=== PATIENT | female | born 1960 | race African-American/Black ===

== ENCOUNTER 2017-07-18 08:55 | Inpatient (IN) | payer MEDICARE, MEDICAID ==
[2017-07-18] VITALS (7 sets, daily range): BP systolic 109–119; BP diastolic 78–85
[~2017-07-18] VITALS: Ht 167.6 cm; Wt 88.0 kg
[2017-07-18] MEDS ORDERED: METHYLPREDNISOLONE SOD SUCC 125 MG/2 ML VIAL IV STA (09:02)
[2017-07-18] MEDS ORDERED: MORPHINE SULFATE 4 MG/ML CPJ (NOT FOR IM USE) IV STA (09:02)
[2017-07-18] MEDS ORDERED: ALBUTEROL (0.083%) 2.5MG/3ML NEB HHN STA (09:02)
[2017-07-18] MEDS ORDERED: IPRATROPIUM BROMIDE (0.02%) 0.5MG/2.5ML NEB HHN STA (09:02)
[2017-07-18] MEDS ORDERED: TERBUTALINE SULFATE 1MG/ML VIAL SUBCUT ONE (09:15)
[2017-07-18] MEDS ORDERED: MAGNESIUM 2 G PREMIX 50 ML IV ONE (09:15)
[2017-07-18 09:38] LABS: BASOPHILS % 0.6 % (0.0-2.0); HEMOGLOBIN. 11.1 g/dL (12.0-16.0); LYMPHOCYTES % 18.9 % (20.0-50.0); MEAN CORPUSCULAR HEMOGLOBIN 24.8 pg (28.0-32.0); MEAN CORPUSCULAR VOLUME 78.4 fL (81.0-99.0); MEAN PLATELET VOLUME 8.2 fl (7.4-10.4); MONOCYTES % 3.8 % (2.0-8.0); NEUTROPHILS % 75.7 % (40.0-76.0); PLATELET 297 x1000/uL (130-400); RED BLOOD CELL COUNT 4.46 mill/uL (4.2-5.4); RED CELL DISTRIBUTION WIDTH 15.5 % (11.6-14.6)
[2017-07-18 09:44] LABS: PROTHROMBIN TIME 10.4 sec (9.4-11.6)
[2017-07-18 09:45] LABS: CHLORIDE 106 mEq/L (98-107)
[2017-07-18 09:52] LABS: CARBON DIOXIDE 26 mEq/L (21-32)
[2017-07-18 09:53] LABS: TROPONIN I 0.05 ng/mL (0.00-0.04)
[2017-07-18] MEDS ORDERED: MORPHINE SULFATE 4 MG/ML CPJ (NOT FOR IM USE) IV ONE (10:30)
[2017-07-18] MEDS ORDERED: IPRATROPIUM/ALBUTEROL 0.5-3(2.5)MG/3ML NEB HHN PRN (12:30)
[2017-07-18] MEDS ORDERED: LORAZEPAM 2MG/ML CPJ IV NR ×2 (12:30→21:45)
[2017-07-18] MEDS: BUDESONIDE 0.5MG/2ML NEB HHN SCH ×2 (13:01→21:04)
[2017-07-18] MEDS: IPRATROPIUM/ALBUTEROL 0.5-3(2.5)MG/3ML NEB HHN SCH ×3 (13:01→21:05)
[2017-07-18] MEDS ORDERED: GUAIFENESIN 200MG/10ML SUGAR FREE UDC PO PRN (14:00)
[2017-07-18] MEDS ORDERED: METHYLPREDNISOLONE SOD SUCC 40 MG/ML VIAL IV SCH ×2 (14:00→18:00)
[2017-07-18] MEDS ORDERED: ONDANSETRON HCL 4MG/2ML VIAL IV PRN (14:00)
[2017-07-18] MEDS ORDERED: CEFTRIAXONE 1 G PREMIX 50 ML IV SCH (14:00)
[2017-07-18] MEDS ORDERED: METHYLPREDNISOLONE SOD SUCC 125 MG/2 ML VIAL IV SCH (14:00)
[2017-07-18] MEDS ORDERED: IPRATROPIUM/ALBUTEROL 0.5-3(2.5)MG/3ML NEB INH PRN (14:00)
[2017-07-18] MEDS ORDERED: DOCUSATE SODIUM 100MG CAPSULE PO PRN (14:00)
[2017-07-18] MEDS ORDERED: BUDESONIDE 0.5MG/2ML NEB HHN SCH (14:00)
[2017-07-18] MEDS ORDERED: CLONIDINE 0.1MG TABLET PO PRN (14:00)
[2017-07-18] MEDS ORDERED: ENOXAPARIN 40MG/0.4ML SYR SUBCUT SCH (14:00)
[2017-07-18 14:37] LABS: BG BASE EXCESS -1.6 mmol/L (-2.0-2.0); BG BILEVEL POS AIRWAY PRESSURE 15/5; BG CARBOXYHEMOGLOBIN 0.3 % (0.5-1.5); BG FRACTION INSPIRED OXYGEN 50; BG HCO3 ACT 26.2 mmol/L (22.0-26.0); BG METHEMOGLOBIN 0.3 % (0.0-1.5); BG OXYHEMOGLOBIN 98.4 % (94.0-97.0); BG PCO2 58.7 mmHg (35.0-45.0); BG PH 7.267 (7.350-7.450); BG PO2 205.6 mmHg (75.0-100.0); BG SAMPLE SITE RIGHT RADIAL; BG VENT MODE MASK - BIPAP; BG VENT RATE 20 set
[2017-07-18 15:37] LABS: CARBON DIOXIDE 27 mEq/L (21-32); CHLORIDE 105 mEq/L (98-107)
[2017-07-18 15:43] LABS: CREATINE KINASE MB FRACTION 9.2 ng/mL (0.5-3.6); TROPONIN I 0.38 ng/mL (0.00-0.04)
[2017-07-18] MEDS: CEFTRIAXONE 1 G PREMIX 50 ML IV SCH (16:39)
[2017-07-18] MEDS: NICOTINE 21MG PATCH TD SCH ×2 (17:00→18:04)
[2017-07-18] MEDS: LORAZEPAM 0.5MG TABLET PO PRN (17:25)
[2017-07-18] MEDS: AMLODIPINE 2.5MG TABLET PO SCH (18:03)
[2017-07-18] MEDS: METHYLPREDNISOLONE SOD SUCC 125 MG/2 ML VIAL IV SCH ×2 (18:04→23:27)
[2017-07-18] MEDS: ENOXAPARIN 30MG/0.3ML SYR SUBCUT SCH (20:24)
[2017-07-19] VITALS (15 sets, daily range): BP systolic 84–127; BP diastolic 24–99
[2017-07-19 00:01] LABS: CREATINE KINASE MB FRACTION 14.2 ng/mL (0.5-3.6)
[2017-07-19 00:07] LABS: TROPONIN I 0.72 ng/mL (0.00-0.04)
[2017-07-19] MEDS: IPRATROPIUM/ALBUTEROL 0.5-3(2.5)MG/3ML NEB HHN SCH ×6 (00:18→21:23)
[2017-07-19] MEDS: ACETAMINOPHEN 325MG TABLET PO PRN ×2 (05:20→16:52)
[2017-07-19] MEDS: METHYLPREDNISOLONE SOD SUCC 125 MG/2 ML VIAL IV SCH ×4 (05:21→23:10)
[2017-07-19 06:20] LABS: HEMATOCRIT. 32.7 % (36.0-48.0); HEMOGLOBIN. 10.5 g/dL (12.0-16.0); MEAN CORPUSCULAR HEMOGLOBIN 24.6 pg (28.0-32.0); MEAN CORPUSCULAR VOLUME 76.5 fL (81.0-99.0); MEAN PLATELET VOLUME 8.7 fl (7.4-10.4); PLATELET 281 x1000/uL (130-400); RED BLOOD CELL COUNT 4.27 mill/uL (4.2-5.4); RED CELL DISTRIBUTION WIDTH 15.3 % (11.6-14.6)
[2017-07-19 07:20] LABS: CARBON DIOXIDE 26 mEq/L (21-32); CHLORIDE 103 mEq/L (98-107); HDL CHOLESTEROL 60 mg/dL (40-59); LDL CHOLESTEROL 53 mg/dL (5-100)
[2017-07-19 07:25] LABS: CLARITY URINE CLEAR (CLEAR); COLOR URINE YELLOW (YELLOW); GLUCOSE URINE NEGATIVE (NEGATIVE); KETONES URINE NEGATIVE (NEGATIVE); LEUKOCYTE ESTERASE URINE NEGATIVE (NEGATIVE); NITRITE URINE NEGATIVE (NEGATIVE); OCCULT BLOOD URINE NEGATIVE (NEGATIVE); PROTEIN URINE NEGATIVE (NEGATIVE); SPECIFIC GRAVITY URINE 1.018 (1.005-1.030); UROBILINOGEN URINE 0.2 E.U./dL (0.2-1.0)
[2017-07-19 08:04] LABS: TROPONIN I 0.57 ng/mL (0.00-0.04)
[2017-07-19 08:11] LABS: *AMPHETAMINES SCREEN URINE NEGATIVE (NEGATIVE); *BARBITURATES SCREEN URINE NEGATIVE (NEGATIVE); *BENZODIAZEPINES SCREEN URINE NEGATIVE (NEGATIVE); *COCAINE SCREEN URINE NEGATIVE (NEGATIVE); CANNABINOID URINE SCREEN NEGATIVE (NEGATIVE); METHADONE URINE SCREEN NEGATIVE (NEGATIVE); OPIATES URINE SCREEN PRESUMTIVE POSITIVE (NEGATIVE); PHENCYCLIDINE URINE SCREEN NEGATIVE (NEGATIVE)
[2017-07-19] MEDS: BUDESONIDE 0.5MG/2ML NEB HHN SCH ×2 (08:25→21:23)
[2017-07-19] MEDS: ENOXAPARIN 30MG/0.3ML SYR SUBCUT SCH ×2 (08:55→20:13)
[2017-07-19] MEDS: CEFTRIAXONE 1 G PREMIX 50 ML IV SCH (08:55)
[2017-07-19] MEDS: AMLODIPINE 2.5MG TABLET PO SCH ×2 (08:56→17:44)
[2017-07-19] MEDS: LORAZEPAM 0.5MG TABLET PO PRN ×2 (09:09→16:52)
[2017-07-19] MEDS: NICOTINE 21MG PATCH TD SCH (12:52)
[2017-07-19 13:31] LABS: PLATELET ESTIMATE NORMAL
[2017-07-19] MEDS ORDERED: TAP5 PO (14:58)
[2017-07-19] MEDS ORDERED: LORA0.5T2 PO (14:59)
[2017-07-19] MEDS ORDERED: HYDR12.54 PO (15:07)
[2017-07-19] MEDS ORDERED: THEO200T17 PO (15:07)
[2017-07-19] MEDS ORDERED: FLUTI (15:07)
[2017-07-19] MEDS ORDERED: ASPI-1159 PO (15:07)
[2017-07-19] MEDS ORDERED: UMEC62.5 IH (15:07)
[2017-07-19] MEDS ORDERED: LISI40TA4 PO (15:07)
[2017-07-19] MEDS: MAGNESIUM/ALUMINUM HYDROXIDE/SIMETHICONE 30ML UDC PO PRN (16:51)
[2017-07-19] MEDS ORDERED: LACTULOSE 20G/30ML UDC PO PRN (17:15)
[2017-07-20] VITALS (12 sets, daily range): BP systolic 99–131; BP diastolic 64–88
[2017-07-20] MEDS: IPRATROPIUM/ALBUTEROL 0.5-3(2.5)MG/3ML NEB HHN SCH ×6 (00:39→21:05)
[2017-07-20] MEDS ORDERED: DILTIAZEM HCL 5MG/ML 5ML VIAL IV NR (05:30)
[2017-07-20] MEDS ORDERED: DILTIAZEM HCL 125 MG in DEXT 5% WATER 100 ML IV PRN ×2 (05:45→10:05)
[2017-07-20] MEDS: METHYLPREDNISOLONE SOD SUCC 125 MG/2 ML VIAL IV SCH (05:53)
[2017-07-20] MEDS: BUDESONIDE 0.5MG/2ML NEB HHN SCH ×2 (07:43→21:00)
[2017-07-20] MEDS: ENOXAPARIN 30MG/0.3ML SYR SUBCUT SCH ×2 (09:00→21:27)
[2017-07-20] MEDS: AMLODIPINE 2.5MG TABLET PO SCH ×2 (09:00→17:49)
[2017-07-20] MEDS: LORAZEPAM 0.5MG TABLET PO PRN (09:00)
[2017-07-20] MEDS: NICOTINE 14MG PATCH TD SCH (09:00)
[2017-07-20 09:38] LABS: HEMATOCRIT. 33.6 % (36.0-48.0); HEMOGLOBIN. 10.9 g/dL (12.0-16.0); MEAN CORPUSCULAR HEMOGLOBIN 24.8 pg (28.0-32.0); MEAN CORPUSCULAR VOLUME 76.4 fL (81.0-99.0); MEAN PLATELET VOLUME 8.8 fl (7.4-10.4); PLATELET 291 x1000/uL (130-400); RED CELL DISTRIBUTION WIDTH 15.6 % (11.6-14.6)
[2017-07-20 10:00] LABS: CARBON DIOXIDE 30 mEq/L (21-32); CHLORIDE 105 mEq/L (98-107)
[2017-07-20] MEDS ORDERED: LORAZEPAM 0.5MG TABLET PO PRN (12:30)
[2017-07-20] MEDS: ALPRAZOLAM 0.25 MG TABLET PO SCH ×2 (14:02→21:25)
[2017-07-20] MEDS: DILTIAZEM HCL 30MG TABLET PO SCH ×2 (14:03→17:50)
[2017-07-20] MEDS: CEFTRIAXONE 1 G PREMIX 50 ML IV SCH (14:03)
[2017-07-20] MEDS: METHYLPREDNISOLONE SOD SUCC 40 MG/ML VIAL IV SCH ×2 (14:15→21:25)
[2017-07-20 19:50] LABS: PLATELET ESTIMATE NORMAL
[2017-07-21] VITALS (12 sets, daily range): BP systolic 93–140; BP diastolic 55–84
[2017-07-21] MEDS: IPRATROPIUM/ALBUTEROL 0.5-3(2.5)MG/3ML NEB HHN SCH ×3 (00:07→08:36)
[2017-07-21] MEDS: DILTIAZEM HCL 30MG TABLET PO SCH ×4 (06:00→18:00)
[2017-07-21] MEDS: ALPRAZOLAM 0.25 MG TABLET PO SCH ×3 (06:00→22:04)
[2017-07-21] MEDS: METHYLPREDNISOLONE SOD SUCC 40 MG/ML VIAL IV SCH ×3 (06:07→22:07)
[2017-07-21 07:29] LABS: HEMATOCRIT. 33.5 % (36.0-48.0); HEMOGLOBIN. 10.7 g/dL (12.0-16.0); MEAN CORPUSCULAR HEMOGLOBIN 24.6 pg (28.0-32.0); MEAN CORPUSCULAR VOLUME 76.9 fL (81.0-99.0); MEAN PLATELET VOLUME 8.6 fl (7.4-10.4); PLATELET 271 x1000/uL (130-400); RED BLOOD CELL COUNT 4.36 mill/uL (4.2-5.4); RED CELL DISTRIBUTION WIDTH 15.6 % (11.6-14.6)
[2017-07-21 07:54] LABS: CARBON DIOXIDE 31 mEq/L (21-32); CHLORIDE 103 mEq/L (98-107)
[2017-07-21] MEDS: BUDESONIDE 0.5MG/2ML NEB HHN SCH ×2 (08:36→21:34)
[2017-07-21] MEDS: AMLODIPINE 2.5MG TABLET PO SCH ×2 (09:00→17:00)
[2017-07-21] MEDS: NICOTINE 14MG PATCH TD SCH (09:00)
[2017-07-21] MEDS: LORAZEPAM 2MG/ML CPJ IV PRN (09:17)
[2017-07-21] MEDS: ENOXAPARIN 30MG/0.3ML SYR SUBCUT SCH ×2 (09:25→21:30)
[2017-07-21] MEDS ORDERED: IPRATROPIUM BROMIDE (0.02%) 0.5MG/2.5ML NEB HHN PRN (10:15)
[2017-07-21] MEDS: IPRATROPIUM BROMIDE (0.02%) 0.5MG/2.5ML NEB HHN SCH ×3 (12:13→21:34)
[2017-07-21 12:36] LABS: PLATELET ESTIMATE NORMAL
[2017-07-21] MEDS: CEFTRIAXONE 1 G PREMIX 50 ML IV SCH (13:54)
[2017-07-21] MEDS: ACETAMINOPHEN 325MG TABLET PO PRN (13:57)
[2017-07-21] MEDS: MAGNESIUM/ALUMINUM HYDROXIDE/SIMETHICONE 30ML UDC PO PRN (14:04)
[2017-07-21] MEDS: PANTOPRAZOLE 40MG DR TABLET PO SCH (15:53)
[2017-07-21] MEDS: HYDROCODONE/ACETAMINOPHEN 5/325MG TABLET PO PRN (15:56)
[2017-07-22] VITALS (15 sets, daily range): BP systolic 110–143; BP diastolic 54–84
[2017-07-22] MEDS: DILTIAZEM HCL 30MG TABLET PO SCH ×4 (00:14→17:56)
[2017-07-22] MEDS: IPRATROPIUM BROMIDE (0.02%) 0.5MG/2.5ML NEB HHN SCH ×6 (01:27→20:44)
[2017-07-22] MEDS: METHYLPREDNISOLONE SOD SUCC 40 MG/ML VIAL IV SCH ×3 (05:46→21:37)
[2017-07-22] MEDS: ALPRAZOLAM 0.25 MG TABLET PO SCH ×3 (05:47→21:37)
[2017-07-22] MEDS: PANTOPRAZOLE 40MG DR TABLET PO SCH ×2 (06:47→18:36)
[2017-07-22 07:12] LABS: HEMATOCRIT. 34.6 % (36.0-48.0); HEMOGLOBIN. 11.2 g/dL (12.0-16.0); MEAN CORPUSCULAR HEMOGLOBIN 24.9 pg (28.0-32.0); MEAN CORPUSCULAR VOLUME 77.2 fL (81.0-99.0); MEAN PLATELET VOLUME 8.8 fl (7.4-10.4); PLATELET 256 x1000/uL (130-400); RED BLOOD CELL COUNT 4.49 mill/uL (4.2-5.4); RED CELL DISTRIBUTION WIDTH 15.4 % (11.6-14.6)
[2017-07-22 07:45] LABS: CARBON DIOXIDE 32 mEq/L (21-32); CHLORIDE 100 mEq/L (98-107)
[2017-07-22] MEDS: BUDESONIDE 0.5MG/2ML NEB HHN SCH ×2 (07:56→20:44)
[2017-07-22] MEDS: AMLODIPINE 2.5MG TABLET PO SCH ×3 (08:19→17:57)
[2017-07-22] MEDS: LORAZEPAM 2MG/ML CPJ IV PRN ×2 (08:19→15:38)
[2017-07-22] MEDS: NICOTINE 14MG PATCH TD SCH (08:20)
[2017-07-22] MEDS: ENOXAPARIN 30MG/0.3ML SYR SUBCUT SCH ×2 (08:20→21:37)
[2017-07-22] MEDS: CEFTRIAXONE 1 G PREMIX 50 ML IV SCH (08:28)
[2017-07-22 10:42] LABS: PLATELET ESTIMATE NORMAL
[2017-07-22] MEDS: ACETAMINOPHEN 325MG TABLET PO PRN (12:18)
[2017-07-22] MEDS: HYDROCODONE/ACETAMINOPHEN 5/325MG TABLET PO PRN (14:36)
[2017-07-23] VITALS: BP 111/64
[2017-07-23] MEDS: DILTIAZEM HCL 30MG TABLET PO SCH ×4 (00:09→17:20)
[2017-07-23] MEDS: IPRATROPIUM BROMIDE (0.02%) 0.5MG/2.5ML NEB HHN SCH ×6 (00:54→20:54)
[2017-07-23] MEDS: HYDROCODONE/ACETAMINOPHEN 5/325MG TABLET PO PRN ×3 (02:05→18:59)
[2017-07-23 04:00] VITALS: BP 103/74
[2017-07-23] MEDS: METHYLPREDNISOLONE SOD SUCC 40 MG/ML VIAL IV SCH ×2 (05:14→11:58)
[2017-07-23] MEDS: ALPRAZOLAM 0.25 MG TABLET PO SCH ×2 (05:14→11:58)
[2017-07-23 07:16] LABS: BASOPHILS % 0.2 % (0.0-2.0); HEMOGLOBIN. 11.9 g/dL (12.0-16.0); LYMPHOCYTES % 7.4 % (20.0-50.0); MEAN CORPUSCULAR HEMOGLOBIN 24.9 pg (28.0-32.0); MEAN CORPUSCULAR VOLUME 77.2 fL (81.0-99.0); MEAN PLATELET VOLUME 8.8 fl (7.4-10.4); MONOCYTES % 3.1 % (2.0-8.0); NEUTROPHILS % 89.3 % (40.0-76.0); PLATELET 278 x1000/uL (130-400); RED BLOOD CELL COUNT 4.79 mill/uL (4.2-5.4); RED CELL DISTRIBUTION WIDTH 15.4 % (11.6-14.6)
[2017-07-23 07:33] LABS: CARBON DIOXIDE 31 mEq/L (21-32); CHLORIDE 98 mEq/L (98-107)
[2017-07-23 08:20] VITALS: BP 122/70
[2017-07-23] MEDS: BUDESONIDE 0.5MG/2ML NEB HHN SCH ×2 (08:32→20:54)
[2017-07-23] MEDS: ENOXAPARIN 30MG/0.3ML SYR SUBCUT SCH ×2 (08:34→22:01)
[2017-07-23] MEDS: AMLODIPINE 2.5MG TABLET PO SCH ×2 (08:34→17:19)
[2017-07-23] MEDS: NICOTINE 14MG PATCH TD SCH (08:35)
[2017-07-23] MEDS: CEFTRIAXONE 1 G PREMIX 50 ML IV SCH (08:35)
[2017-07-23 12:00] VITALS: BP 116/82
[2017-07-23] MEDS: ALPRAZOLAM 0.25 MG TABLET PO PRN (13:49)
[2017-07-23] MEDS ORDERED: PROPOFOL 200MG/20ML VIAL IV ONE (16:10)
[2017-07-23] MEDS ORDERED: LIDOCAINE HCL 1% 20ML VIAL (Pyxis) INJ ONE (16:10)
[2017-07-23] MEDS ORDERED: CEFAZOLIN SODIUM 1000MG/VIAL ONE (16:28)
[2017-07-23 16:59] VITALS: BP 147/80
[2017-07-23] MEDS: LORAZEPAM 2MG/ML CPJ IV PRN (17:24)
[2017-07-23 20:00] VITALS: BP 113/59
[2017-07-24] VITALS: BP 107/81
[2017-07-24] MEDS: IPRATROPIUM BROMIDE (0.02%) 0.5MG/2.5ML NEB HHN SCH ×7 (00:36→23:35)
[2017-07-24 04:00] VITALS: BP 102/98
[2017-07-24] MEDS: DILTIAZEM HCL 30MG TABLET PO SCH ×4 (06:00→17:53)
[2017-07-24 07:20] LABS: BASOPHILS % 0.4 % (0.0-2.0); EOSINOPHILS % 0.1 % (0.0-5.0); HEMATOCRIT. 37.7 % (36.0-48.0); HEMOGLOBIN. 12.3 g/dL (12.0-16.0); MEAN CORPUSCULAR HEMOGLOBIN 24.8 pg (28.0-32.0); MEAN CORPUSCULAR VOLUME 76.2 fL (81.0-99.0); MEAN PLATELET VOLUME 8.9 fl (7.4-10.4); MONOCYTES % 8.9 % (2.0-8.0); NEUTROPHILS % 82.6 % (40.0-76.0); PLATELET 281 x1000/uL (130-400); RED BLOOD CELL COUNT 4.94 mill/uL (4.2-5.4); RED CELL DISTRIBUTION WIDTH 15.1 % (11.6-14.6)
[2017-07-24 07:42] LABS: CARBON DIOXIDE 33 mEq/L (21-32); CHLORIDE 98 mEq/L (98-107)
[2017-07-24 08:00] VITALS: BP 115/60
[2017-07-24] MEDS: PREDNISONE 20MG TABLET PO SCH (09:10)
[2017-07-24] MEDS: LORAZEPAM 2MG/ML CPJ IV PRN ×2 (09:10→15:11)
[2017-07-24] MEDS: FAMOTIDINE 20MG TABLET PO SCH ×2 (09:13→21:40)
[2017-07-24] MEDS: NICOTINE 14MG PATCH TD SCH ×2 (09:13→09:24)
[2017-07-24] MEDS: AMLODIPINE 2.5MG TABLET PO SCH ×2 (09:14→17:53)
[2017-07-24] MEDS: CEFTRIAXONE 1 G PREMIX 50 ML IV SCH (09:14)
[2017-07-24] MEDS: ENOXAPARIN 30MG/0.3ML SYR SUBCUT SCH ×2 (09:15→21:40)
[2017-07-24 11:11] LABS: BG CARBOXYHEMOGLOBIN 0.1 % (0.5-1.5); BG DEOXYHEMOGLOBIN 1.1 % (0.0-5.0); BG FRACTION INSPIRED OXYGEN 40; BG HCO3 ACT 29.9 mmol/L (22.0-26.0); BG METHEMOGLOBIN 0.4 % (0.0-1.5); BG OXYGEN SATURATION 98.9 % (92.0-98.5); BG OXYHEMOGLOBIN 98.4 % (94.0-97.0); BG PCO2 50.1 mmHg (35.0-45.0); BG PH 7.394 (7.350-7.450); BG SAMPLE SITE RIGHT BRACHIAL; BG TOTAL HEMOGLOBIN 13.4 g/dL (12.0-18.0); BG VENT MODE MASK - BIPAP; BG VENT RATE 16 set
[2017-07-24 12:00] VITALS: BP 143/65
[2017-07-24 17:44] VITALS: BP 136/77
[2017-07-24] MEDS: HYDROCODONE/ACETAMINOPHEN 5/325MG TABLET PO PRN ×2 (17:52→21:47)
[2017-07-24] MEDS ORDERED: NA PHOS,M-B/NA PHOS,DI-BA ENEMA 118ML PR PRN (18:00)
[2017-07-24 20:00] VITALS: BP 114/70
[2017-07-25] VITALS: BP 106/49
[2017-07-25 04:00] VITALS: BP 136/64
[2017-07-25] MEDS: IPRATROPIUM BROMIDE (0.02%) 0.5MG/2.5ML NEB HHN SCH ×4 (04:12→20:30)
[2017-07-25] MEDS: LORAZEPAM 2MG/ML CPJ IV PRN (05:33)
[2017-07-25] MEDS: DILTIAZEM HCL 30MG TABLET PO SCH ×4 (05:37→18:00)
[2017-07-25 06:32] LABS: BASOPHILS % 0.3 % (0.0-2.0); EOSINOPHILS % 0.2 % (0.0-5.0); HEMATOCRIT. 39.3 % (36.0-48.0); HEMOGLOBIN. 12.5 g/dL (12.0-16.0); MEAN CORPUSCULAR HEMOGLOBIN 24.6 pg (28.0-32.0); MEAN CORPUSCULAR VOLUME 77.1 fL (81.0-99.0); MONOCYTES % 9.4 % (2.0-8.0); NEUTROPHILS % 76.1 % (40.0-76.0); PLATELET 276 x1000/uL (130-400); RED BLOOD CELL COUNT 5.09 mill/uL (4.2-5.4); RED CELL DISTRIBUTION WIDTH 15.2 % (11.6-14.6)
[2017-07-25 06:49] LABS: CARBON DIOXIDE 32 mEq/L (21-32); CHLORIDE 97 mEq/L (98-107)
[2017-07-25 08:00] VITALS: BP 115/68
[2017-07-25] MEDS: CEFTRIAXONE 1 G PREMIX 50 ML IV SCH (08:54)
[2017-07-25] MEDS: PREDNISONE 20MG TABLET PO SCH (08:54)
[2017-07-25] MEDS: FAMOTIDINE 20MG TABLET PO SCH (08:54)
[2017-07-25] MEDS: AMLODIPINE 2.5MG TABLET PO SCH ×2 (08:54→17:00)
[2017-07-25] MEDS: ENOXAPARIN 30MG/0.3ML SYR SUBCUT SCH (08:55)
[2017-07-25 12:00] VITALS: BP 112/55
[2017-07-25] MEDS: ALPRAZOLAM 0.25 MG TABLET PO PRN (13:46)
[2017-07-25 16:00] VITALS: BP 112/58
[2017-07-25 20:22] VITALS: BP 127/72
== END 2017-07-25 21:25 | disposition home or self-care (01) | DRG 871 ==
LOC: ER 09:11 → ENRESERV 10:09 → 5EST 10:48 → EDBEDREQTM 10:53 → EDBEDREQ 10:53 → 6WST 07-22 18:05
PROVIDERS: ADMIT Internal Medicine; ATTEND Internal Medicine
PROC: 5A09357 Assistance with Respiratory Ventilation, Less than 24 Consecutive Hours, Continuous Positive Airway Pressure (ICD-10-PCS; principal; 2017-07-18)
DX: A41.9 Sepsis, unspecified organism (principal); J96.20 Acute and chronic respiratory failure, unspecified whether with hypoxia or hypercapnia; I11.9 Hypertensive heart disease without heart failure; J44.1 Chronic obstructive pulmonary disease with (acute) exacerbation; I48.91 Unspecified atrial fibrillation; F17.210 Nicotine dependence, cigarettes, uncomplicated; F41.0 Panic disorder [episodic paroxysmal anxiety]; D72.829 Elevated white blood cell count, unspecified; I25.10 Atherosclerotic heart disease of native coronary artery without angina pectoris; I25.2 Old myocardial infarction; Z79.82 Long term (current) use of aspirin; Z79.899 Other long term (current) drug therapy; Z86.73 Personal history of transient ischemic attack (TIA), and cerebral infarction without residual deficits; Z71.6 Tobacco abuse counseling
CPT/HCPCS: 36415; 36600; 71010; 78582; 80048; 80053; 80061; 80305; 81003; 82375; 82550; 82553; 82805; 83605; 83690; 83735; 83880; 84443; 84484; 85025; 85610; 87040; 87086; 93005; 93306; 93970; 94640; 94660; 96365; 96375; 99291; A9558; C1893; J0690; J0696; J1650; J2060; J2270; J2405; J2704; J2920; J2930; J3105; J3475; J3490; J7050; J7060; J7512; J7611; J7620; J7626